=== PATIENT | female | born 1990 | race Caucasian/White ===

== ENCOUNTER 2023-04-28 23:55 | Observation (INO) | payer BC ==
[2023-04-29 00:28] LABS: Bacteria/HPF 1+ HPF (None Seen); Bilirubin Negative (Negative); Blood, Urine Negative (Negative); CAUTI Indications for Culture Pelvic or flank pain; Clarity Clear (Clear); Glucose, Urine (Dipstick) Normal (Negative); Ketone, Urine Negative (Negative); Leukocyte 75 Leu/uL (Negative); Nitrite Negative (Negative); Protein, Urine (Dipstick) Negative (Neg-Trace); RBC/HPF 0-3 HPF (0-3); Specific Gravity, Urine 1.007 (1.002-1.036); Squamous Epithelial 0-3 HPF (0-3); Urobilinogen Normal mg/dL (Less than 2); pH, Urine 6.5 (5.0-9.0)
[2023-04-29 00:29] LABS: Urine Culture Reflex No No
[2023-04-29] MEDS ORDERED: Morphine 4 MG/ML VIAL ONE (00:34)
[2023-04-29] MEDS ORDERED: Ketorolac Tromethamine 30 MG/ML VIAL ONE (00:34)
[2023-04-29 01:21] LABS: #Basophils 0.1 thou/uL (0.0-0.2); #Eosinphils 0.2 thou/uL (0.0-0.7); #Monocytes 0.9 thou/uL (0.11-0.59); #Neutrophils 11.1 thou/uL (1.40-6.50); %Basophils 0.4 % (0.0-1.0); %Eosinophils 1.1 % (0.0-10.0); %Lymphocytes 15.2 % (21.0-51.0); %Neutrophils 76.8 % (42.0-75.0); Hemoglobin 13.2 g/dL (12.0-16.0); Mean Corpuscular HGB CONC 34.3 g/dL (32.0-36.0); Mean Corpuscular Hemoglobin 29.6 pg (27.0-31.0); Mean Corpuscular Volume 86.3 fl (78.0-98.0); Mean Platelet Volume 8.9 fL (7.4-10.4); Platelet Count 312 10x3/uL (130-400); RBC Distribution Width 13.7 % (11.5-14.5); Red Blood Cell (RBC) Count 4.46 mill/uL (4.20-5.40); White Blood Cell (WBC) Count 14.5 10x3/uL (4.8-10.8)
[2023-04-29 01:41] LABS: Anion Gap 14 mmol/L (10-20); BUN (Urea Nitrogen) 13 mg/dL (7.0-18.7); Calc. Creatinine Clearance 0 mL/min (70-130); Calcium 8.7 mg/dL (7.8-10.44); Carbon Dioxide 23 mmol/L (22-29); Chloride 103 mmol/L (98-107); Estimated GFR 72; Glucose 104 mg/dL (70-105); Potassium 3.9 mmol/L (3.5-5.1); Sodium 136 mmol/L (136-145)
[2023-04-29 02:18] VITALS: BMI 29.2
[2023-04-29] MEDS ORDERED: Morphine 4 MG/ML VIAL SLOW IVP PRN (03:18)
[2023-04-29] MEDS ORDERED: Ketorolac Tromethamine 30 MG/ML VIAL IVP PRN (03:19)
[2023-04-29] MEDS ORDERED: Iopamidol 15 ML ONE (07:44)
[2023-04-29] MEDS ORDERED: LevoFLOXacin 500 mg/D5W 100 ML BAG ONE (09:07)
[2023-04-29] MEDS ORDERED: PROPOFOL 200 MG/20 ML VIAL ONE (09:34)
[2023-04-29 12:04] VITALS: TEMP 97.8
[2023-04-29 16:34] VITALS: BP 108/74
== END 2023-04-29 16:56 | disposition home or self-care (01) ==
LOC: ERS 23:55 → SURG A 04-29 00:52 → ERHOLD 04-29 01:19 → SURG A 04-29 01:38
PROVIDERS: ADMIT Urology; ATTEND Urology
PROC: 0TH98YZ Insertion of Other Device into Ureter, Via Natural or Artificial Opening Endoscopic (ICD-10-PCS; principal; 2023-04-29)
DX: N20.1 Calculus of ureter (principal); N13.30 Unspecified hydronephrosis; Z90.89 Acquired absence of other organs
CPT/HCPCS: 80048; 81001; 85025; 96374; 96375; 96376; C2617; G0378; J1885; J1956; J2270; J2704; Q9967